=== PATIENT | female | born 1990 ===

== ENCOUNTER 2017-09-01 08:08 | Emergency (ER) | payer SELFPAY ==
[2017-09-01 08:41] LABS: #Basophils 0.1 thou/uL (0.0-0.2); #Eosinphils 0.1 thou/uL (0.0-0.7); #Lymphocytes 1.5 thou/uL (1.20-3.40); #Monocytes 0.4 thou/uL (0.11-0.59); #Neutrophils 7.2 thou/uL (1.40-6.50); %Basophils 0.8 % (0.0-1.0); %Eosinophils 0.9 % (0.0-10.0); %Monocytes 4.5 % (0.0-10.0); %Neutrophils 77.7 % (42.0-75.0); Hemoglobin 13.6 g/dL (12.0-16.0); Mean Corpuscular HGB CONC 31.5 g/dL (32.0-36.0); Mean Corpuscular Hemoglobin 26.6 pg (27.0-31.0); Mean Corpuscular Volume 84.6 fl (81.0-99.0); Mean Platelet Volume 7.1 fL (7.4-10.4); Platelet Count 284 thou/uL (130-400); RBC Distribution Width 12.1 % (11.5-14.5); White Blood Cell (WBC) Count 9.3 thou/uL (4.8-10.8)
[2017-09-01 09:05] LABS: ALT (SGPT) 13 U/L (8-55); AST (SGOT) 17 U/L (5-34); Albumin 4.6 g/dL (3.5-5.0); Alkaline Phosphatase 72 U/L (40-150); Anion Gap 12 mmol/L (10-20); BUN (Urea Nitrogen) 12 mg/dL (7.0-18.7); Bilirubin, Total 0.5 mg/dL (0.2-1.2); Calc. Creatinine Clearance 0 mL/min (70-130); Calcium 9.7 mg/dL (7.8-10.44); Carbon Dioxide 26 mmol/L (22-29); Chloride 107 mmol/L (98-107); Estimated GFR-MDRD 90; Globulin 3.1 g/dL (2.4-3.5); Glucose 97 mg/dL (70-105); Potassium 3.7 mmol/L (3.5-5.1); Protein, Total 7.7 g/dL (6.0-8.3); Sodium 141 mmol/L (136-145)
[2017-09-01 09:22] LABS: Pregnancy Test - Urine (BHCG) Negative (Negative); Pregu Control Background? CLEAR/WHITE (CLR/WHITE); Pregu Control Bar Appear? YES (CONTROL BAR); Specific Gravity 1.006 (1.002-1.036)
[2017-09-01] MEDS ORDERED: Meclizine HCl 25 MG TAB ONE (09:24)
[2017-09-01] MEDS ORDERED: Acetaminophen 500 MG TAB ONE (09:39)
--- NOTE | 2017-09-01 11:37 | CT ---
CT HEAD NONCONTRAST: INDICATIONS: A 27-year-old female with generalized weakness. FINDINGS: There is no evidence of ventriculomegaly, mass effect, midline shift, or acute intracranial hemorrhag e. No acute fluid levels of the imaged paranasal sinuses. The calvarium is intact. No pneumocephal us. IMPRESSION: No acute intracranial abnormalities demonstrated. POS: [facility]
== END 2017-09-01 10:18 | disposition home or self-care (01) ==
LOC: ERS 08:08
DX: R42 Dizziness and giddiness (principal); F41.9 Anxiety disorder, unspecified
CPT/HCPCS: 36415; 70450; 80053; 81025; 85025; 93005